=== PATIENT | female | born 1940 | race Caucasian/White ===

== ENCOUNTER 2019-01-08 12:03 | Observation (INO) | payer MEDICARE ==
[~2019-01-08] VITALS: Ht 157.5 cm; Wt 77.1 kg
[2019-01-08] MEDS ORDERED: ASPIRIN 81MG TAB.CHEW ONE (12:27)
[2019-01-08 12:40] LABS: BASOPHILS % (AUTO) 0.8 % (0.0-5.0); EOSINOPHILS % (AUTO) 3.7 % (0.0-8.0); HEMATOCRIT 39.5 % (36-48); LYMPHOCYTES % (AUTO) 22.6 % (21.0-51.0); MEAN CORPUSCULAR HEMOGLOBIN 31.2 pg (27.0-33.0); MEAN CORPUSCULAR HGB CONC 33.6 g/dL (32.0-36.0); MEAN CORPUSCULAR VOLUME 92.8 fL (79-99); MONOCYTES % (AUTO) 6.3 % (3.0-13.0); NEUTROPHILS % (AUTO) 66.6 % (40.0-77.0); NUCLEATED RED BLOOD CELLS 0.1 % (0.0-0.19); PLATELET COUNT (AUTO) 265 K/uL (130-400); RED BLOOD CELL COUNT(AUTO) 4.26 MIL/uL (4.00-5.50); RED CELL DISTRIBUTION WIDTH 14.3 % (11.0-15.5); WHITE BLOOD COUNT (AUTO) 5.3 K/uL (4.8-10.8)
[2019-01-08 12:55] LABS: CREATININE 0.7 mg/dL (0.5-1.5); POTASSIUM 3.9 mmol/L (3.5-5.1)
[2019-01-08 13:01] LABS: INR 0.97 (0.85-1.15); PARTIAL THROMBOPLASTIN TIME 28.2 SEC (26.3-35.5); PROTHROMBIN TIME 10.2 SEC (9.6-11.6)
[2019-01-08 13:05] LABS: ALBUMIN 3.2 g/dL (3.5-5.0); BILIRUBIN,TOTAL 0.6 mg/dL (0.2-1.0); TOTAL PROTEIN, SERUM 6.4 g/dL (6.0-8.3)
[2019-01-08] MEDS: NITROGLYCERIN 1GM/1 INCH PACKET TD SCH (16:15)
[2019-01-08] MEDS ORDERED: MORPHINE SULFATE 2 MG/ML 1ML SYG IV PRN (16:15)
[2019-01-08] MEDS ORDERED: ONDANSETRON HCL 4 MG/2 ML VIAL IV PRN (16:15)
[2019-01-08] MEDS ORDERED: HYDRALAZINE HCL 20 MG/ML VIAL IV PRN (16:15)
[2019-01-08] MEDS ORDERED: ACETAMINOPHEN 325 MG TAB PO PRN (16:15)
[2019-01-08] MEDS ORDERED: NITROGLYCERIN 1GM/1 INCH PACKET TD ONE (16:57)
[2019-01-08] MEDS: LOSARTAN 50 MG TABLET PO SCH (21:00)
[2019-01-08] MEDS ORDERED: FAMOTIDINE/PF 20 MG/2 ML VIAL IV SCH (21:00)
[2019-01-08] MEDS ORDERED: LOSARTAN 50 MG TABLET ONE (21:00)
[2019-01-08] MEDS: ATORVASTATIN CALCIUM 40 MG TABLET PO SCH (21:00)
[2019-01-08] MEDS: FAMOTIDINE/PF 20 MG/2 ML VIAL IV SCH (21:00)
[2019-01-08] MEDS: RANOLAZINE 500 MG TAB.SR.12H PO SCH (21:00)
[2019-01-08] MEDS ORDERED: ATORVASTATIN CALCIUM 40 MG TABLET ONE (21:00)
[2019-01-08] MEDS ORDERED: FAMOTIDINE/PF 20 MG/2 ML VIAL IV ONE (21:00)
[2019-01-08] MEDS: CARVEDILOL 6.25 MG TABLET PO SCH (21:00)
[2019-01-08] MEDS ORDERED: METOPROLOL TARTRATE 25 MG TAB PO SCH (21:00)
[2019-01-08 21:48] VITALS: BP 141/62
[2019-01-08] MEDS: SODIUM CHLORIDE 0.9% 1000ML 1,000 ML IV SCH (22:20)
[2019-01-08 23:00] VITALS: BP 127/49
[2019-01-08] MEDS ORDERED: CARV12.511 PO (23:16)
[2019-01-08] MEDS ORDERED: LACT70CA PO (23:16)
[2019-01-08] MEDS ORDERED: LOSA25TA41 PO (23:16)
[2019-01-08] MEDS ORDERED: ASPI-555 PO (23:16)
[2019-01-08] MEDS ORDERED: NITR0.4T SL (23:16)
[2019-01-08] MEDS ORDERED: ATOR40TA71 PO (23:16)
[2019-01-08] MEDS ORDERED: RANO500T2 PO (23:16)
[2019-01-08] MEDS ORDERED: CALC600T12 PO (23:16)
[2019-01-08] MEDS ORDERED: CHOL200074 PO (23:16)
[2019-01-08] MEDS ORDERED: FLUT1BLS3 IH (23:16)
[2019-01-08] MEDS ORDERED: VITA1CAP85 PO (23:16)
[2019-01-08] MEDS ORDERED: ALBU8.5H8 IH (23:16)
[2019-01-08] MEDS ORDERED: ASCO500C18 PO (23:16)
[2019-01-09] MEDS: NITROGLYCERIN 1GM/1 INCH PACKET TD SCH ×4 (00:23→23:29)
[2019-01-09] MEDS: SODIUM CHLORIDE 0.9% 1000ML 1,000 ML IV SCH ×2 (01:31→17:42)
[2019-01-09 03:00] VITALS: BP 117/50
[2019-01-09 06:30] LABS: CREATINE KINASE, TOTAL 28 U/L (21-232); MYOGLOBIN 30 ng/mL (10-92); TROPONIN I < 0.04 ng/mL (0.00-0.06)
[2019-01-09 07:41] VITALS: BP 133/64
[2019-01-09] MEDS: ASPIRIN 325 MG TABLET PO SCH (08:19)
[2019-01-09] MEDS: RANOLAZINE 500 MG TAB.SR.12H PO SCH ×2 (08:20→20:50)
[2019-01-09] MEDS: CARVEDILOL 6.25 MG TABLET PO SCH ×2 (08:20→20:50)
[2019-01-09] MEDS: FAMOTIDINE/PF 20 MG/2 ML VIAL IV SCH ×2 (08:20→20:50)
[2019-01-09] MEDS: ENOXAPARIN SODIUM 40 MG/0.4 ML SYRINGE SQ SCH (08:21)
[2019-01-09 11:06] VITALS: BP 130/59
[2019-01-09 15:20] VITALS: BP 137/67
[2019-01-09 19:08] VITALS: BP 124/79
[2019-01-09] MEDS: LOSARTAN 50 MG TABLET PO SCH (20:50)
[2019-01-09] MEDS: ATORVASTATIN CALCIUM 40 MG TABLET PO SCH (20:50)
[2019-01-09 21:16] VITALS: BP 149/77
[2019-01-10 00:09] VITALS: BP 139/68
[2019-01-10 04:00] VITALS: BP 138/64
[2019-01-10 07:37] VITALS: BP 116/47
[2019-01-10] MEDS: SODIUM CHLORIDE 0.9% 1000ML 1,000 ML IV SCH (08:01)
[2019-01-10] MEDS: FAMOTIDINE/PF 20 MG/2 ML VIAL IV SCH (09:08)
[2019-01-10] MEDS: ASPIRIN 325 MG TABLET PO SCH (09:08)
[2019-01-10] MEDS: RANOLAZINE 500 MG TAB.SR.12H PO SCH (09:08)
[2019-01-10] MEDS: ENOXAPARIN SODIUM 40 MG/0.4 ML SYRINGE SQ SCH (09:09)
[2019-01-10] MEDS: CARVEDILOL 6.25 MG TABLET PO SCH (09:09)
[2019-01-10] MEDS: NITROGLYCERIN 1GM/1 INCH PACKET TD SCH ×2 (09:10→16:57)
[2019-01-10] MEDS: REGADENOSON 0.4 MG/5 ML PF SYG IVP SCH ×2 (12:00→12:50)
[2019-01-10 15:25] VITALS: BP 146/84
== END 2019-01-10 19:10 | disposition home or self-care (01) ==
LOC: EDH 12:03 → EDHIP 16:01 → 2DH 21:28
PROVIDERS: ADMIT Internal Medicine; ATTEND Internal Medicine
DX: R07.89 Other chest pain (principal); E66.9 Obesity, unspecified; E78.5 Hyperlipidemia, unspecified; I10 Essential (primary) hypertension; I25.10 Atherosclerotic heart disease of native coronary artery without angina pectoris; J44.9 Chronic obstructive pulmonary disease, unspecified; Z95.1 Presence of aortocoronary bypass graft; Z96.1 Presence of intraocular lens; Z96.653 Presence of artificial knee joint, bilateral; Z98.41 Cataract extraction status, right eye; Z98.42 Cataract extraction status, left eye; Z99.81 Dependence on supplemental oxygen; Z87.891 Personal history of nicotine dependence
CPT/HCPCS: 36415 ×2; 71045; 78452; 80053; 82550 ×2; 83874 ×2; 84484 ×2; 85025; 85610; 85730; 93005 ×2; 93017; 93306; 96372 ×2; 96374; 96376 ×2; 99284; A9500 ×2; G0378 ×51; J1650 ×2; J2785; J3490 ×4; J7030 ×2

== ENCOUNTER 2022-01-19 10:27 | Day surgery (SDC) | payer MEDICARE ==
[~2022-01-19] VITALS: Ht 157.5 cm; Wt 73.5 kg
[2022-01-19] VITALS (8 sets, daily range): BP systolic 119–149; BP diastolic 51–73
[~2022-01-19 10:27] MED LIST: ALBU8.5H8 IH; ASCO500C18 PO; ASPI-556 PO; ATOR40TA71 PO; CALC-1125 PO; CARV12.511 PO; CHOL200074 PO; FLUT1BLS3 IH; LACT70CA PO; LOSA25TA41 PO; NITR0.4T SL; RANO500T2 PO; VITA1CAP85 PO
[2022-01-19] MEDS ORDERED: 0.9%NACL 1000ML 1,000 ML IV ONE (10:51)
[2022-01-19] MEDS ORDERED: MELA1TAB17 PO (11:19)
[2022-01-19] MEDS ORDERED: GLYCOPYRROLATE 1 MG/5 ML SYRINGE ONE (12:00)
[2022-01-19] MEDS ORDERED: LIDOCAINE PF 100MG/5ML (2%) SYRINGE 5ML ONE (12:00)
[2022-01-19] MEDS ORDERED: PROPOFOL 10 MG/ML 20ML VIAL IV ONE (12:00)
== END 2022-01-19 12:50 | disposition home or self-care (01) ==
LOC: DAH 10:27 → ENDO 10:27
PROVIDERS: ATTEND Internal Medicine Gastroenterology
DX: R13.10 Dysphagia, unspecified (principal); K44.9 Diaphragmatic hernia without obstruction or gangrene; K29.70 Gastritis, unspecified, without bleeding; J44.9 Chronic obstructive pulmonary disease, unspecified; I10 Essential (primary) hypertension; E11.9 Type 2 diabetes mellitus without complications; E78.5 Hyperlipidemia, unspecified; D64.9 Anemia, unspecified; I25.10 Atherosclerotic heart disease of native coronary artery without angina pectoris; Z98.51 Tubal ligation status; Z98.890 Other specified postprocedural states; Z90.49 Acquired absence of other specified parts of digestive tract; Z90.89 Acquired absence of other organs; Z72.89 Other problems related to lifestyle; Z88.8 Allergy status to other drugs, medicaments and biological substances; Z79.899 Other long term (current) drug therapy; Z87.891 Personal history of nicotine dependence
CPT/HCPCS: 43235; 82948; 87635; A4215 ×2; A4221; A4222; A4223; A4606; A4620; A4663; C9803; J2001; J2704; J3490; J7030

== ENCOUNTER → 2022-01-25 | Outpatient (CLI) | payer MEDICARE ==
[~2022-01-25] MED LIST changes: -ASCO500C18 PO; -CALC-1125 PO; -CHOL200074 PO; -LOSA25TA41 PO; +MELA1TAB17 PO; -VITA1CAP85 PO
== END ==
LOC: RAH 08:44
PROVIDERS: ATTEND Internal Medicine Gastroenterology
DX: K44.9 Diaphragmatic hernia without obstruction or gangrene (principal)
CPT/HCPCS: 74240

== ENCOUNTER → 2022-11-22 | Outpatient (CLI) | payer MEDICARE ==
[~2022-11-22] MED LIST changes: -ALBU8.5H8 IH; +ALBU90AE IH; +ASPI-1197 PO; -ASPI-556 PO; +AUD IH; +CARV25TA PO; +CHOL500050 PO; +CYAN50009 PO; -LACT70CA PO; -MELA1TAB17 PO; +OMEP40CA21 PO
== END | disposition home or self-care (01) ==
LOC: SHCH 15:06
PROVIDERS: ATTEND Internal Medicine Cardiovascular Disease
DX: I65.23 Occlusion and stenosis of bilateral carotid arteries (principal)
CPT/HCPCS: 93880

== ENCOUNTER → 2022-12-15 | Outpatient (CLI) | payer MEDICARE | END | disposition home or self-care (01) | LOC: RAH 08:58 | PROVIDERS: ATTEND Internal Medicine Gastroenterology | DX: K44.9 Diaphragmatic hernia without obstruction or gangrene (principal); K21.9 Gastro-esophageal reflux disease without esophagitis; Z90.49 Acquired absence of other specified parts of digestive tract | CPT/HCPCS: 74240 ==

== ENCOUNTER → 2022-12-26 | Outpatient (CLI) | payer MEDICARE ==
[2022-12-26 12:55] LABS: POTASSIUM 4.1 mmol/L (3.5-5.1)
== END | disposition home or self-care (01) ==
LOC: LAB 10:37
PROVIDERS: ATTEND Internal Medicine Cardiovascular Disease
DX: E11.9 Type 2 diabetes mellitus without complications (principal); E78.5 Hyperlipidemia, unspecified
CPT/HCPCS: 36415; 80048

== ENCOUNTER 2023-02-08 05:58 | Day surgery (SDC) | payer MEDICARE ==
[~2023-02-08] VITALS: Ht 158.8 cm; Wt 68.6 kg
[~2023-02-08 05:58] MED LIST changes: -ALBU90AE IH; -CARV12.511 PO
[2023-02-08 06:35] VITALS: BP 155/58
[2023-02-08] MEDS ORDERED: L.AC1CAP6 PO (07:51)
[2023-02-08] MEDS ORDERED: PANT40TA54 PO (07:51)
[2023-02-08] MEDS ORDERED: [UNRECOGNIZED DRUG - OTHER] NASAL (07:51)
[2023-02-08] MEDS ORDERED: FAMO40TA7 PO (07:51)
[2023-02-08] MEDS ORDERED: DOCU100C33 PO (07:52)
[2023-02-08] MEDS ORDERED: DYAZIDE GT (07:52)
[2023-02-08] MEDS ORDERED: POLY17PO4 PO (07:52)
[2023-02-08] MEDS ORDERED: DOCU250C14 PO (07:52)
[2023-02-08] MEDS ORDERED: WHEA1POW2 PO (07:52)
[2023-02-08] MEDS ORDERED: LIDOCAINE HCL 1% 20 ML VIAL ONE (08:00)
[2023-02-08] MEDS ORDERED: PROPOFOL 10 MG/ML 20ML VIAL IV ONE (08:00)
[2023-02-08] MEDS ORDERED: 0.9%NACL 1000ML 1,000 ML IV ONE ×2 (08:04→08:05)
[2023-02-08] MEDS ORDERED: SIMETHICONE 40 MG/0.6 ML ML ONE (08:05)
[2023-02-08] MEDS ORDERED: EPHEDRINE SULFATE 50 MG/ML AMPULE ONE (08:14)
[2023-02-08 08:20] VITALS: BP 124/45
[2023-02-08 08:35] VITALS: BP 123/45
[2023-02-08 08:50] VITALS: BP 125/44
== END 2023-02-08 08:58 | disposition home or self-care (01) ==
LOC: ENDO 05:58 → DAH 05:58 → ENDO 08:58
PROVIDERS: ATTEND Surgery
DX: K21.9 Gastro-esophageal reflux disease without esophagitis (principal); Z20.822 Contact with and (suspected) exposure to COVID-19; K44.9 Diaphragmatic hernia without obstruction or gangrene; K31.89 Other diseases of stomach and duodenum; K22.89 Other specified disease of esophagus; K57.30 Diverticulosis of large intestine without perforation or abscess without bleeding; K59.04 Chronic idiopathic constipation; I10 Essential (primary) hypertension; I25.10 Atherosclerotic heart disease of native coronary artery without angina pectoris; J44.9 Chronic obstructive pulmonary disease, unspecified; D64.9 Anemia, unspecified; E78.5 Hyperlipidemia, unspecified; Z87.891 Personal history of nicotine dependence; Z99.2 Dependence on renal dialysis; Z96.653 Presence of artificial knee joint, bilateral; Z98.41 Cataract extraction status, right eye; Z98.42 Cataract extraction status, left eye; Z90.49 Acquired absence of other specified parts of digestive tract; Z98.51 Tubal ligation status; Z95.1 Presence of aortocoronary bypass graft; Z90.89 Acquired absence of other organs; Z98.890 Other specified postprocedural states; Z72.89 Other problems related to lifestyle
CPT/HCPCS: 87426; 43239; J7030 ×3; J3490; J2704; A4620; A4215 ×2; A4223; A4657; A4222; A4221; A4663; A4606

== ENCOUNTER → 2023-02-22 | Outpatient (CLI) | payer MEDICARE ==
[~2023-02-22] MED LIST changes: -CHOL500050 PO; +DOCU100C33 PO; +DOCU250C14 PO; +DYAZIDE GT; +FAMO40TA7 PO; +L.AC1CAP6 PO; -OMEP40CA21 PO; +PANT40TA54 PO; +POLY17PO4 PO; +WHEA1POW2 PO; +[UNRECOGNIZED DRUG - OTHER] NASAL
== END | disposition home or self-care (01) ==
LOC: SHCH 09:38
PROVIDERS: ATTEND Internal Medicine Cardiovascular Disease
DX: I87.2 Venous insufficiency (chronic) (peripheral) (principal)
CPT/HCPCS: 93970

== ENCOUNTER → 2023-03-02 | Outpatient (CLI) | payer MEDICARE ==
[2023-03-02 16:43] LABS: CREATININE 0.9 mg/dL (0.5-1.5)
== END | disposition home or self-care (01) ==
LOC: LAB 11:35
PROVIDERS: ATTEND Internal Medicine Cardiovascular Disease
DX: I10 Essential (primary) hypertension (principal)
CPT/HCPCS: 36415; 80048

== ENCOUNTER → 2024-03-29 | Outpatient (CLI) | payer MEDICARE ==
[2024-03-29 12:40] LABS: CREATININE 0.8 mg/dL (0.5-1.0); POTASSIUM 4.2 mmol/L (3.5-5.1)
== END | disposition home or self-care (01) ==
LOC: LAB 10:37
PROVIDERS: ATTEND Internal Medicine Cardiovascular Disease
DX: I10 Essential (primary) hypertension (principal)
CPT/HCPCS: 36415; 80048

== ENCOUNTER → 2024-04-17 | Outpatient (CLI) | payer MEDICARE ==
[2024-04-17 16:27] LABS: CREATININE 0.7 mg/dL (0.5-1.0); POTASSIUM 4.1 mmol/L (3.5-5.1)
== END | disposition home or self-care (01) ==
LOC: LAB 13:33
PROVIDERS: ATTEND Internal Medicine Cardiovascular Disease
DX: I10 Essential (primary) hypertension (principal); E78.5 Hyperlipidemia, unspecified; I24.0 Acute coronary thrombosis not resulting in myocardial infarction
CPT/HCPCS: 36415; 80048

== ENCOUNTER → 2024-05-06 | Outpatient (CLI) | payer MEDICARE ==
[2024-05-06 16:23] LABS: CREATININE 0.8 mg/dL (0.5-1.0); POTASSIUM 4.2 mmol/L (3.5-5.1)
== END | disposition home or self-care (01) ==
LOC: LAB 14:03
PROVIDERS: ATTEND Internal Medicine Cardiovascular Disease
DX: I10 Essential (primary) hypertension (principal); E78.5 Hyperlipidemia, unspecified; I24.0 Acute coronary thrombosis not resulting in myocardial infarction
CPT/HCPCS: 36415; 80048

== ENCOUNTER → 2024-07-31 | Outpatient (CLI) | payer MEDICARE ==
--- NOTE | 2024-08-01 08:09 | HMCSR ---
APPROVED REPORT Laterality: Bilateral Doppler Spectral Velocity Analysis PSV / EDVPSV / EDV ECA (R) 199 / cm/sECA (L) 196 / cm/s dICA (R) 130 / 32 cm/sdICA (L) 106 / 21 cm/s Gino (R) 128 / 25 cm/smICA (L) 127 / 21 cm/s pICA (R) 135 / 14 cm/spICA (L) 132 / 31 cm/s dCCA (R) 70 / 15 cm/sdCCA (L) 67 / 12 cm/s mCCA (R) 66 / 7 cm/smCCA (L) 92 / 20 cm/s pCCA (R) 57 / 13 cm/spCCA (L) 101 / 16 cm/s Vert (R) 47 / cm/sVert (L) 47 / cm/s Subl. (R) 167 / cm/sSubl. (L) 159 / cm/s ICA/CCA 1.93ICA/CCA 1.31 Technologist Impression Mild heterogenous plaque noted in the bilateral carotid arteries. There is evidence of 50-69% stenosis in the right internal carotid artery. There is evidence of 50-69% stenosis in the left internal carotid artery. Elevated velocities noted in the bilateral external carotid arteries. The bilateral vertebral arteries reflect antegrade flow. Conclusion As above. Conclusion As above.
== END | disposition home or self-care (01) ==
LOC: SHCH 14:11
PROVIDERS: ATTEND Internal Medicine Cardiovascular Disease
DX: I65.23 Occlusion and stenosis of bilateral carotid arteries (principal); I25.10 Atherosclerotic heart disease of native coronary artery without angina pectoris
CPT/HCPCS: 93880